=== PATIENT | female | born 1995 | race Caucasian/White ===

== ENCOUNTER 2018-11-25 19:42 | Inpatient (IN) | payer MEDICAID, SELFPAY ==
[2018-11-25] VITALS (16 sets, daily range): BP systolic 98–142; BP diastolic 63–95; PULSE 77–98; RESP 11–20; TEMP 36.6–37; O2SAT 95–100
[2018-11-25] MEDS: Normal Saline 1,000 ML 1000 ML IV (19:10)
--- NOTE | 2018-11-25 19:26 | ED.GENADUL_ITS ---
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 She does also admit to lower abdominal pain and dizziness since bleeding started. Vitals within normal limits. She admits to large amounts of bleeding saturating pants and EMS admits to a fist sized blood clot at home. Upon evaluation in room, lower abdomen tender and heavy amount of bright red bleeding noted within vaginal vault. Concern for active hemorrhaging. Will place 2 large-bore IVs, screening labs, type and screen, and 2 units pRBC, TXA. 1929 -- Discussed with company laborer on-call Dr. Weinstein - he is coming now to evaluate pt and likely plan for OR. 1936 -- Dr. Friedman here - will take to the OR. Pt remains hemodynamically stable. Medical Records Medical records reviewed: Yes I reviewed the patient's medical records. HPI General Mode of arrival: ambulatory . Date/Time Provider Initiated Documentation: 11/25/18 19:57 . Limitations to Documentation: no limitations . Information obtained by: patient . HPI Narrative: Pt is a 23yo F who is 2 weeks s/p hysterectomy presents with heavy vaginal bleeding that started 1 hour ago. Patient states she picked up her 3-year-old daughter this morning which is more exertion that she has done in the past 2 weeks. She denies any other injury. She admits to lower abdominal pain and dizziness that has started within the past hour. She does admit to chronic back pain over the past 2 weeks. She ate just prior to arrival. 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[place]: 2 Review of Systems Review of Systems ROS Unobtainable: All systems reviewed & are unremarkable except as noted in HPI and below Constitutional Constitutional: Reports as per HPI, Denies chills and Denies fever(s) Eyes Eyes: Denies blurry vision ENT Ears, Nose, Mouth, and Throat: Denies dizziness, Denies sore throat and Denies throat swelling Cardiovascular Cardiovascular: Denies chest pain and Denies dyspnea Respiratory Respiratory: Denies cough and Denies dyspnea Gastrointestinal Gastrointestinal: Denies abdominal pain, Denies diarrhea and Denies vomiting Genitourinary Genitourinary: Denies hematuria, Denies dysuria and Reports other (heavy vaginal bleeding) Musculoskeletal Musculoskeletal: Denies back pain and Denies numbness Integumentary/Breasts Skin/Breast: Denies lesions and Denies rash Neurologic Neurologic: Denies dizziness, Denies focal weakness and Denies numbness Allergic/Immunologic Allergic/Immunologic: Denies throat swelling [facility] Medical History Endometriosis (Chronic) Surgical History History of bilateral tubal ligation (Acute) History of hysterectomy (Chronic) Social History (Updated 11/25/18 @ 19:27 by Mary Anne Pemberton DO) Smoking/Tobacco Use Status: Current every day Alcohol Intake: current Alcohol Intake frequency: a few times a month Drug use: Never Exam Const General: cooperative, healthy appearing and no acute distress HENMT Head: normal to inspection Face and sinus: normal facial exam Eyes General: appearance normal, both eyes and all related structures EOM: EOM intact bilaterally Neck Neck: normal visual inspection and No submandibular swelling Lymphatic: no lymphadenopathy noted Chest Chest: normal inspection of the chest and no tenderness Resp Effort & Inspection: normal respiratory effort and able to speak in complete sentences Auscultation: clear to auscultation bilaterally Cardio Rate: regular rate Rhythm: regular rhythm GI Inspection: normal to inspection Palpation: soft, not firm, not rigid and tender suprapubicly Auscultation: normal bowel sounds Other: Gushing bright red blood mixed with large clots from the vaginal introitus. Unable to view deep within the vaginal vault due to heavy bleeding/clots. Skin General skin exam: no rashes or lesions noted Neuro General: alert, awake and oriented x3 Cognition: normal cognition Speech: speech normal Motor: muscle tone normal throughout Sensory Exam: no sensory deficits noted Extrem General: normal to inspection, full ROM, normal capillary refill, no calf tenderness bilaterally and no edema Psych Appearance: grossly normal Mental Status: mental status grossly normal Speech and Movement: speech and movement normal Affect: normal affect Course Vital Signs Vital signs: Vital Signs Temperature 98.2 F 11/25/18 19:21 Pulse 80 11/25/18 19:21 Respiratory Rate 15 11/25/18 19:21 Blood Pressure 142/88 H 11/25/18 19:21 Pulse Oximetry 98 11/25/18 19:21 Temperature 98.2 F 11/25/18 19:21 Temperature Source Skin 11/25/18 19:21 Pulse 80 11/25/18 19:21 Respiratory Rate 15 11/25/18 19:21 Blood Pressure 142/88 H 11/25/18 19:21 Blood Pressure Position Sitting 11/25/18 19:21 Pulse Oximetry 98 11/25/18 19:21 Oxygen Delivery Method Room Air 11/25/18 19:21 Oxygen Flow Rate 0 11/25/18 19:21
[2018-11-25 19:45] LABS: Abs Immature Grans 0.01 k/cumm (0.0-0.09); Absolute Basophil Count 0.03 k/cumm (0.0-0.2); Absolute Eosinophil Count 0.08 k/cumm (0.0-0.7); Absolute Lymphocyte Count 1.99 k/cumm (1.2-3.4); Absolute Monocyte Count 0.45 k/cumm (0.11-0.7); Absolute Neutrophil Count 4.43 k/cumm (1.2-6.7); Basophils % 0.4; Eosinophils % 1.1; HCT 35.2 % (36.0-46.0); HGB 12.1 g/dL (12.0-15.5); Immature Grans % 0.1; Lymphocytes % 28.5; Mean Corp. HGB Concentration 34.4 g/dL (32.0-36.0); Mean Corpuscular Volume 93.1 fL (80-95); Monocytes % 6.4; Neutrophils % 63.5; Platelet Count 323 x1000/uL (130-400); RBC 3.78 m/cumm (4.00-5.20); RBC Distribution Width 11.7 % (11.7-14.6); White Blood Cell Count 6.99 k/cumm (4.4-10.8)
[2018-11-25 19:58] LABS: ALT 19 U/L (14-59); AST 14 U/L (15-37); Albumin 3.6 g/dL (3.4-5.0); Alkaline Phosphatase 102 U/L (46-116); Anion Gap 7.9 mmol/L (3-11); BUN 13 mg/dL (7-18); Bilirubin, Total 0.4 mg/dL (0.2-1.0); CO2 26.1 mmol/L (21.0-32.0); CREATININE 1.07 mg/dL (0.55-1.02); Calcium 8.9 mg/dL (8.5-10.1); Chloride 106 mmol/L (98-107); Glucose 101 mg/dL (70-100); Potassium 3.9 mmol/L (3.5-5.1); Sodium 140 mmol/L (136-145); Total Protein 7.2 g/dL (6.4-8.2)
[2018-11-25] MEDS: Ondansetron 4 MG/2 ML VIAL (20:19)
--- NOTE | 2018-11-25 20:41 | W.PM.HP.N ---
Date of service: 11/25/18 Time of Service: 20:41 Assessment and Plan Assessment and plan (1) Postoperative hemorrhage: Status: Acute (2) S/P laparoscopic assisted vaginal hysterectomy (LAVH): Status: Acute Assessment and plan: On evaluation the patient was noted to have profuse vaginal bleeding. I reviewed options with the patient. Will plan to proceed with diagnostic laparoscopy and possible laparotomy for management of hemorrhage. Risks of surgery were reviewed. All questions were answered and consent for surgery was obtained. History of Present Illness Narrative: 23 year old presents to the emergency dept with profuse vaginal bleeding starting this evening. She is 2 weeks s/p LAVH at [facility] for endometriosis. She reports lifting her three year old child just prior to the onset of her bleeding. She was light-headed and reports pain up into her abdomen. She is generally healthy with no chronic medical problems. [facility] Medical History Endometriosis (Chronic) Surgical History History of bilateral tubal ligation (Acute) History of hysterectomy (Chronic) Social History (Updated 11/25/18 @ 19:27 by Mary Anne Pemberton DO) Smoking/Tobacco Use Status: Current every day Alcohol Intake: current Alcohol Intake frequency: a few times a month Drug use: Never Meds Home Medications and Allergies Home Medications Medication Instructions Recorded Confirmed Type sertraline [Zoloft] 100 mg PO DAILY 11/25/18 11/25/18 History Allergies Allergy/AdvReac Type Severity Reaction Status Date / Time acetaminophen [From Vicodin] Allergy Severe Other (See Unverified 11/25/18 20:07 Comment) hydrocodone [From Vicodin] Allergy Severe Other (See Unverified 11/25/18 20:07 Comment) codeine Allergy Mild Nausea Unverified 11/25/18 20:07 prednisolone Allergy Skin Rash Unverified 11/25/18 20:07 Exam Resp Auscultation: clear to auscultation bilaterally Cardio Rate: regular rate Rhythm: regular rhythm GI Other: Soft with diffuse TTP. No rebound or guarding. Other: Vaginal exam with profuse bright red bleeding. Results Labs Result diagrams: 11/25/18 19:30 11/25/18 19:30 Labs: Laboratory Results - last 24 hr 11/25/18 11/25/18 11/25/18 19:30 19:30 19:30 WBC 6.99 RBC 3.78 L Hgb 12.1 Hct 35.2 L MCV 93.1 MCH 32.0 MCHC 34.4 RDW 11.7 Plt Count 323 MPV 10.0 Immature Gran % 0.1 Neutrophils % 63.5 Lymphocytes % 28.5 Monocytes % 6.4 Eosinophils % 1.1 Basophils % 0.4 Absolute Neutrophils 4.43 Absolute Lymphocytes 1.99 Absolute Monocytes 0.45 Absolute Eosinophils 0.08 Absolute Basophils 0.03 Sodium 140 Potassium 3.9 Chloride 106 Carbon Dioxide 26.1 Anion Gap 7.9 BUN 13 Creatinine 1.07 H Estimated GFR/1.73 m2 >= 60.00 Glucose 101 H Calcium 8.9 Total Bilirubin 0.4 AST 14 L ALT 19 Alkaline Phosphatase 102 Total Protein 7.2 Albumin 3.6 Patient ABO/Rh O Positive Antibody Screen Negative Crossmatch See Detail Last Vital Signs Temp 98.2 F 11/25/18 19:21 Pulse 80 11/25/18 19:21 Resp 15 11/25/18 19:21 BP 142/88 H 11/25/18 19:21 Pulse Ox 98 11/25/18 19:21
[2018-11-25] MEDS: ceFAZolin 2,000 MG in Normal Saline 100 ML 200 MG IVPB (21:05)
[2018-11-25] MEDS: Normal Saline 1,000 ML 30 ML IV (22:18)
[2018-11-25] MEDS: Cellulose,Oxidized 4X8 1 PACKET MC (22:33)
[2018-11-25] MEDS: Bupivacaine 0.25% Pres-Free 30 ML VIAL (22:34)
[2018-11-25] MEDS: fentaNYL 100 MCG/2 ML VIAL IVP ×4 (23:17→23:40)
[2018-11-25] MEDS: Droperidol 5 MG/2 ML VIAL 0.625 MG IVP (23:39)
[2018-11-26] VITALS (15 sets, daily range): BP systolic 100–113; BP diastolic 62–72; PULSE 60–79; RESP 14–22; TEMP 36.4–37.8; O2SAT 96–98
[2018-11-26] MEDS: Lactated Ringers 1,000 ML 125 ML IV ×2 (00:35→07:38)
[2018-11-26] MEDS: oxyCODONE 5 mg/Acetaminophen 325 mg TAB PO ×2 (07:29→11:26)
[2018-11-26 07:30] LABS: Abs Immature Grans 0.02 k/cumm (0.0-0.09); Absolute Lymphocyte Count 0.92 k/cumm (1.2-3.4); Absolute Monocyte Count 0.33 k/cumm (0.11-0.7); Absolute Neutrophil Count 10.42 k/cumm (1.2-6.7); HCT 30.4 % (36.0-46.0); HGB 10.2 g/dL (12.0-15.5); Immature Grans % 0.2; Lymphocytes % 7.9; Mean Corp. HGB Concentration 33.6 g/dL (32.0-36.0); Mean Corpuscular Hemoglobin 30.5 pg (27.0-33.0); Mean Platelet Volume 10.6 fL (8.0-11.0); Monocytes % 2.8; Neutrophils % 89.1; Platelet Count 280 x1000/uL (130-400); RBC 3.34 m/cumm (4.00-5.20); RBC Distribution Width 13.2 % (11.7-14.6)
[2018-11-26] MEDS: Ondansetron 4 MG/2 ML VIAL IVP (10:04)
--- NOTE | 2018-11-26 11:03 | W.PM.OP ---
Date of service: 11/25/18 Time of Service: 23:30 Operative Note Operative Note DATE OF PROCEDURE: 11/25/18 PRE-OP DIAGNOSIS: Vaginal bleeding following LAVH POST-OP DIAGNOSIS: other (Vaginal cuff dehiscence with hemorrhage) PROCEDURE: Diagnostic laparoscopy. Repair of vaginal cuff dehiscence and bleed. SURGEON: Renato Weinstein ASSISTING SURGEON: Harjinder Koenig ANESTHESIA: GETA ESTIMATED BLOOD LOSS: 600 PATHOLOGY: none sent COMPLICATIONS: None Patient was transported to: PACU Patient's condition: stable Findings: 1. Complete vaginal cuff dehiscence 2. Arterial bleeding along left side of vaginal cuff appearing to be a uterine artery branch. 3. Inflammatory changes with adhesion within the pelvis. Procedure Description: The patient was taken to the operating room and after adequate level general anesthesia was obtained the patient was placed in lithotomy position. A Singh catheter was placed in the bladder draining clear urine. The patient was prepped and draped in the usual sterile manner. Immediately upon positioning the patient had a large volume vaginal bleeding estimated to be approximately 400 mL's prior to the start of surgery. A weighted speculum was placed in the vagina. The vaginal cuff was cleared of all clots. The vaginal cuff was noted to have complete dehiscence. Peritoneum appeared to be intact. After some exploration and an arterial bleed was noted on the left side approximately 1 cm cephalad to the vaginal cuff. This was a very difficult area to access to [id number] sutures were used to attempt to achieve hemostasis. Finally a vertical mattress suture through and through the vaginal mucosa was able to stop the bleeding in this region. The remaining defect in the vaginal cuff was reapproximated with interrupted vertical mattress sutures of 0 Vicryl. Excellent hemostasis was noted. Attention was then turned to the patient's abdomen for diagnostic laparoscopy. The decision was made to proceed with diagnostic laparoscopy in order to attempt to evaluate the vaginal cuff internally. The skin is obtains tissues at the umbilicus were infiltrated with 0.25% Marcaine solution. A small infraumbilical skin incision was then made with a #15 blade scalpel and sharp dissection was carried down to the underlying layer fascia. The fascia was grasped and elevated with 2 Irina clamps and incised sharply with a 15 blade. The peritoneum was entered sharply with a hemostat. 2 sutures of 0 Vicryl were placed on either side of the fascial incision. A 10 mm balloon trocar was inserted. A pneumoperitoneum to approximately 50 mmHg with carbon dioxide was established. A 5 mm port was placed in the right lower quadrant under direct visualization. A new incision was made for this port. There was no blood in the abdominal cavity. In the pelvis inflammatory changes were noted which are expected at this stage postoperatively. There is adhesions involving bowel and omentum to the vaginal cuff. These adhesions were attempted to be taken down but did bleed easily. The decision was made to abandon the attempt to reach the vaginal cuff in order to avoid potential complication. The remainder of the laparoscopic exam was normal in appearance. The abdomen was desufflated. The 5 mm trocar was removed under direct visualization. The fascia at the umbilicus was closed with the 2 previously placed sutures of 0 Vicryl. The skin was closed with interrupted sutures of 4 Monocryl. Band-Aids were applied. Attention was then again turned vaginally. The vaginal cuff was reinspected and was noted to be hemostatic. Vaginal packing was placed and the Singh was left in place as well at the conclusion of the procedure.
== END 2018-11-26 14:15 | disposition home or self-care (01) | DRG 908 ==
LOC: ER 23:56 → MS 11-26 08:54
PROVIDERS: Admitting Provider Obstetrics & Gynecology; Emergency Provider Physician Assistant; PCP Nurse Practitioner Adult Health; Visit Provider Obstetrics & Gynecology
PROC: 0WJJ4ZZ Inspection of Pelvic Cavity, Percutaneous Endoscopic Approach (ICD-10-PCS; CPT 49320; principal; 2018-11-25 20:30)
DX: N99.820 Postprocedural hemorrhage of a genitourinary system organ or structure following a genitourinary system procedure (principal); T81.32XA Disruption of internal operation (surgical) wound, not elsewhere classified, initial encounter; N99.4 Postprocedural pelvic peritoneal adhesions; Z90.710 Acquired absence of both cervix and uterus; Z98.890 Other specified postprocedural states
CPT/HCPCS: 57200; 49320; 35761; 36415; 36430; 80053; 86850; 86900; 86901; 86920; 96361; 96365; 99223; 99285; 85025; 99284; J0131; J0690; J1100; J1790; J2405; J3010; P9016

== ENCOUNTER 2020-12-24 10:58 | Emergency (ER) | payer MEDICAID, SELFPAY ==
[2020-12-24 11:03] VITALS: BP 126/73; PULSE 97; RESP 16; TEMP 36.1; O2SAT 99
--- NOTE | 2020-12-24 11:16 | ED.GENADUL_ITS ---
Discharge Plan Disposition Patient Disposition: HOME Condition: Stable Discharge Details Clinical Impression: Abdominal pain, Constipation Primary Care Provider: Beckie Hameed ED Provider: Christopher Sanford Home Meds and New Rx's Prescriptions: Continued quetiapine 25 mg tablet 25 mg PO .QHS RF: 0 cyclobenzaprine 10 mg tablet 10 mg PO PRNRF: 0 meloxicam 15 mg tablet 15 mg PO PRN PRNRF: 0 Discharge Instructions Instructions: Constipation (ED), Abdominal Pain (ED) Additional Instructions: At this time your laboratory values do not reveal any obvious emergent process. Your bilirubin was slightly elevated and you did have microscopic blood in your urine, CT imaging was offered at this time but declined. Instead I will set you up for ultrasound of your gallbladder and your kidney on Saturday, they should contact you, but I recommend reaching out to our radiology department first thing Saturday to set this appointment up. After your ultrasound you will return to the ER for results and evaluation. A single dose of mag citrate given now, I recommend adequate hydration as well as stool softeners and high fiber diet. You may take the next dose of mag citrate tomorrow morning. Please watch for new or worsening symptoms and return to the ER for any concerns. Otherwise I would like you to contact your primary care provider to discuss your ongoing symptoms and need for outpatient reevaluation. Medical Decision Making 25-year-old female, past medical history of renal stone, tubal ligation, partial hysterectomy, presents to the ER reporting constipation x1 week, abdominal pain x3 days. Clinically she appears well, nontoxic, no acute distress. Abdomen is soft, nontender, normal bowel sounds, certainly nonsurgical. Patient reports when the pain is present it is all over, worse on the right side, and worse with pushing to have a bowel movement. Patient declines a rectal examination. Discussed options, will obtain CBC, CMP, lipase, urinalysis and test. Will give IV hydration while here in the ER. Laboratory values do not reveal any signs of leukocytosis or anemia. Electrolytes unremarkable, creatinine 0.9 with a GFR greater than 60. Her total bilirubin is 1.6 AST 13, otherwise LFTs are unremarkable, lipase is 53. Urinalysis reveals trace intact blood, 3-5 red cells but no signs of infection. Discussed work-up with patient. Given her abdominal pain, worse in the right side, bilirubin of 1.6, although exam is not consistent with acute cholecystitis, certainly cannot rule out biliary colic. Unfortunately cannot obtain an ultrasound at this time. Also discussed her hematuria, patient states this does not feel like a previous uncomplicated renal stone. We discussed further work-up here in the ER, obtaining CT imaging to further evaluate for her abdominal pain, renal stone, gallbladder, etc. Patient states that she feels okay right now prefer not to move forward with CT imaging and would rather return on Saturday for ultrasound. Given her overall presentation I do believe this is reasonable but strict return precautions were provided for new or worsening symptoms over the weekend. Regarding her constipation, she declined a rectal examination, enema, suppository. Patient would prefer to more ag gressively treat her symptoms orally. Will increase her hydration, high-fiber diet, stool softeners, and I will give a single dose of mag citrate now and give the rest of the bottle to take tomorrow morning if she does not have a bowel movement. Patient will have a right upper quadrant and renal ultrasound on Saturday for further evaluation of her symptoms and return to the ER afterwards for results. Patient has no additional questions or concerns and is comfortable with this plan. Again, strict discharge and return precautions provided. This documentation was generated using [employer] dictation system, please disregard any oddities of phrase or misspellings. Medical Records Medical records reviewed: Yes I reviewed the patient's medical records. Lab Data Lab results reviewed: Yes I reviewed the patient's lab results. Labs: Laboratory Tests Range/Units 12/24/20 12/24/20 12/24/20 11:10 11:38 11:38 WBC (4.4-10.8) 10^3/uL 5.73 RBC (3.93-5.22) 10^6/uL 4.30 Hgb (11.2-15.7) g/dL 13.8 Hct (36.0-46.0) % 39.4 MCV (80-95) fL 91.6 MCH (27.0-33.0) pg 32.1 MCHC (32.0-36.0) % 35.0 RDW (11.7-14.6) % 11.7 Plt Count (130-400) 10^3/uL 236 MPV (8.0-11.0) fL 10.0 Immature Gran % 0.2 Neutrophils % 65.8 Lymphocytes % 26.0 Monocytes % 7.2 Eosinophils % 0.3 Basophils % 0.5 Nucleated RBC % % 0 Absolute Neutrophils (1.2-6.7) 10^3/uL 3.77 Absolute Lymphocytes (1.2-3.4) 10^3/uL 1.49 Absolute Monocytes (0.1-0.8) 10^3/uL 0.41 Absolute Eosinophils (0.0-0.7) 10^3/uL 0.02 Absolute Basophils (0.0-0.2) 10^3/uL 0.03 Sodium (136-145) mmol/L 139 Potassium (3.5-5.1) mmol/L 3.6 Chloride (98-107) mmol/L 105 Carbon Dioxide (21.0-32.0) mmol/L 27.1 Anion Gap (3-11) mmol/L 6.9 BUN (7-18) mg/dL 11 Creatinine (0.55-1.02) mg/dL 0.9 Estimated GFR/1.73 m2 (mL/min/1.73m2) >= 60.00 Glucose (74-106) mg/dL 91 Calcium (8.5-10.1) mg/dL 9.2 Total Bilirubin (0.2-1.0) mg/dL 1.6 H AST (15-37) U/L 13 L ALT (14-59) U/L 15 Alkaline Phosphatase (46-116) U/L 68 Total Protein (6.4-8.2) g/dL 7.4 Albumin (3.4-5.0) g/dL 4.3 Lipase (73-393) U/L 53 Urine Color (Yellow) Yellow Urine Clarity (Clear) Sl Cloudy Urine pH (5-8) 6.5 Ur Specific [place] (1.005-1.025) 1.025 Urine Protein (Negative) mg/dL Negative Urine Ketones (Negative) mg/dL Negative Urine Blood (Negative) Trace-intact H Urine Nitrite (Negative) Negative Urine Bilirubin (Negative) Negative Urine Urobilinogen (Up TO 0.2) EU/dL 1.0 H Ur Leukocyte Esterase (Negative) Negative Urine RBC (0-2) HPF 3-5 H Urine WBC (0-5) HPF Negative Ur Epithelial Cells (Negative) HPF Many Urine Crystals (Negative) HPF Negative Urine Bacteria (Negative) HPF Moderate Urine Casts (Negative) LPF Negative Urine Mucus (Negative) Moderate Ur Culture Indicated? No/Sq. Contamination Urine Glucose (Negative) mg/dL Negative HPI General Mode of arrival: ambulatory . Date/Time Provider Initiated Documentation: 12/24/20 10:58 . Limitations to Documentation: no limitations . Information obtained by: patient . HPI Narrative: This is a 25-year-old female reporting constipation for approximately 7 days, now with subsequent abdominal pain for the past 3. She reports the pain is all over, crampy, mild but worse on the right side, it was sharp last night and kept her from sleeping. She has tried [id number] laxative with no significant results. She reports nausea but no vomiting. She denies fever, recent illness or travel. She reports the pain is much better now than it was last night. Denies any back pain, diarrhea, blood in her stool, abnormal colored stool, dysuria, vaginal bleeding or discharge. Patient reports a history of tubal ligation. She reports history of renal stones but this feels nothing like that. She denies history of bowel movements. Reports that her bowels are typically very regular on a daily basis. Related Data Home Medications Medication Instructions Recorded Confirmed cyclobenzaprine 10 mg PO PRN 12/24/20 meloxicam 15 mg PO PRN PRN 12/24/20 12/24/20 quetiapine 25 mg PO .QHS 12/24/20 12/24/20 Allergies Allergy/AdvReac Type Severity Reaction Status Date / Time acetaminophen [From Vicodin] Allergy Severe Other (See Unverified 12/24/20 11:09 Comment) hydrocodone [From Vicodin] Allergy Severe Other (See Unverified 12/24/20 11:09 Comment) codeine Allergy Mild Nausea Unverified 12/24/20 11:09 prednisolone Allergy Skin Rash Unverified 12/24/20 11:09 General Stated Complaint: Abd Prob [place]: 3 Review of Systems Constitutional Constitutional: Denies fever(s) Cardiovascular Cardiovascular: Denies chest pain and Denies dyspnea Respiratory Respiratory: Denies cough and Denies dyspnea Gastrointestinal Gastrointestinal: Reports abdominal pain, Reports constipation, Reports nausea and Denies vomiting Genitourinary Genitourinary: Denies abnormal vaginal bleeding, Denies dysuria and Denies vaginal discharge Musculoskeletal Musculoskeletal: Denies back pain Integumentary/Breasts Skin/Breast: Denies rash REPLACED BY [facility] Medical History Endometriosis Surgical History History of bilateral tubal ligation History of hysterectomy Social History Smoking/Tobacco Use Status: Current every day Tobacco Type: e-cigarettes Smoking risk assessment performed?: Yes Alcohol Intake: current Alcohol Intake frequency: a few times a month Drug use: Never Exam Const General: cooperative, healthy appearing, comfortable and no acute distress Orientation: alert and awake HENMT Head: normal to inspection, normocephalic and atraumatic Face and sinus: normal facial exam Mouth: moist mucous membranes Eyes General: appearance normal, both eyes and all related structures Conjunctivae: conjunctivae normal Neck Neck: normal visual inspection, trachea midline and supple Resp Effort & Inspection: normal respiratory effort and able to speak in complete sentences Auscultation: clear to auscultation bilaterally Cardio Rate: regular rate Rhythm: regular rhythm GI Inspection: normal to inspection Palpation: soft, not firm, no guarding, no pulsatile masses and nontender Auscultation: normal bowel sounds Back/Spine/Pelvis Back: No back tenderness Skin General skin exam: no rashes or lesions noted Neuro General: patient alert, patient awake, moves all extremities and no focal motor deficits Cognition: normal cognition Speech: speech normal Gait: normal gait Sensory Exam: no sensory deficits noted Extrem General: normal to inspection and full ROM Psych Appearance: grossly normal Mental Status: mental status grossly normal Course Vital Signs Vital signs: Vital Signs Temperature 36.1 C L 12/24/20 11:03 Pulse 97 H 12/24/20 11:03 Respiratory Rate 16 12/24/20 11:03 Blood Pressure 126/73 12/24/20 11:03 Pulse Oximetry 99 12/24/20 11:03 Temperature 36.1 C L 12/24/20 11:03 Temperature Source Skin 12/24/20 11:03 Pulse 97 H 12/24/20 11:03 Respiratory Rate 16 12/24/20 11:03 Respiratory Effort Non-Labored 12/24/20 11:03 Blood Pressure 126/73 12/24/20 11:03 Blood Pressure Position Supine 12/24/20 11:03 Pulse Oximetry 99 12/24/20 11:03 Oxygen Delivery Method Room Air 12/24/20 11:03 Oxygen Flow Rate 0 12/24/20 11:03 Pain Level 6 12/24/20 11:03 PAWSS Have you Been Recently Intoxicated or Drunk Within the Last 30 days?: No Have you Ever Experienced Previous Episodes of Alcohol Withdrawal?: No Have you ever Experienced Withdrawal Seizures?: No Have you ever Experienced Delirium Tremens(DT)s?: No Have you ever undergone Alcohol Rehabilitation Treatment (i.e, inpt ot outpatient treatment programs)?: No Have you ever Experienced Blackouts?: No Have you ever Combined Alcohol with other Downers within the last 90 days?: No Have you ever Combined Alcohol with any other Substance of Abuse during the last 90 days?: No Positive Blood Alcohol level on Presentation? [PCS.BAL]: No Evidence of Increased Autonomic Activity (i.e. HR>120, tremor, sweating, agitation, nausea)?: No Result: 0
[2020-12-24 11:26] LABS: Bilirubin Negative (Negative); Blood Trace-intact (Negative); Clarity Sl Cloudy (Clear); Glucose Negative (Negative); Ketones Negative (Negative); Leukocyte Esterase Negative (Negative); Nitrite Negative (Negative); Specific Gravity 1.025 (1.005-1.025); pH 6.5 (5-8)
[2020-12-24 11:38] LABS: Bacteria Moderate HPF (Negative); Casts Negative LPF (Negative); Crystals Negative HPF (Negative); Epithelial Cells Many HPF (Negative); Mucus Moderate (Negative); WBC Negative HPF (0-5)
[2020-12-24 11:39] LABS: C & S Indicated? No/Sq. Contamination
[2020-12-24 11:44] LABS: Abs Immature Grans 0.01 10^3/uL (0.0-0.06); Absolute Basophil Count 0.03 10^3/uL (0.0-0.2); Absolute Eosinophil Count 0.02 10^3/uL (0.0-0.7); Absolute Lymphocyte Count 1.49 10^3/uL (1.2-3.4); Absolute Monocyte Count 0.41 10^3/uL (0.1-0.8); Absolute Neutrophil Count 3.77 10^3/uL (1.2-6.7); Basophils % 0.5; Eosinophils % 0.3; HCT 39.4 % (36.0-46.0); HGB 13.8 g/dL (11.2-15.7); Immature Grans % 0.2; MCH 32.1 pg (27.0-33.0); MCV 91.6 fL (80-95); Monocytes % 7.2; Neutrophils % 65.8; Nucleated RBC 0 %; Platelet Count 236 10^3/uL (130-400); RDW 11.7 % (11.7-14.6); RDW-SD 39.4 fL; WBC 5.73 10^3/uL (4.4-10.8)
[2020-12-24] MEDS: Normal Saline 1,000 ML 1000 ML IV (11:44)
[2020-12-24 11:58] LABS: ALT 15 U/L (14-59); AST 13 U/L (15-37); Albumin 4.3 g/dL (3.4-5.0); Alkaline Phosphatase 68 U/L (46-116); Anion Gap 6.9 mmol/L (3-11); BUN 11 mg/dL (7-18); Bilirubin, Total 1.6 mg/dL (0.2-1.0); CO2 27.1 mmol/L (21.0-32.0); CREATININE 0.9 mg/dL (0.55-1.02); Calcium 9.2 mg/dL (8.5-10.1); Chloride 105 mmol/L (98-107); Glucose 91 mg/dL (74-106); Lipase 53 U/L (73-393); Potassium 3.6 mmol/L (3.5-5.1); Sodium 139 mmol/L (136-145); Total Protein 7.4 g/dL (6.4-8.2)
--- NOTE | 2020-12-24 12:24 | NUR.NOTE ---
Nursing Note: Request for outpatient RUQ/Renus ultrasound for SaturdayDec.26 and follow up in the ED after faxed to DI. Sloane Guallpa
[2020-12-24] MEDS: Magnesium Citrate 300 ML BTL 150 ML PO (12:42)
[2020-12-24 12:47] VITALS: BP 121/74; PULSE 77; RESP 18; O2SAT 100
== END 2020-12-24 13:17 | disposition home or self-care (01) ==
PROVIDERS: Emergency Provider Physician Assistant; PCP Nurse Practitioner Adult Health
DX: R10.9 Unspecified abdominal pain (principal); K59.00 Constipation, unspecified
CPT/HCPCS: 36415; 80053; 81025; 83690; 96360; 99283; 81003; 81015; 85025